=== PATIENT | male | born 1975 | race Caucasian/White ===

== ENCOUNTER 2018-02-16 14:18 | Inpatient (IN) | payer BC, OTHER ==
[~2018-02-16] VITALS: Ht 185.4 cm; Wt 95.3 kg
--- NOTE | 2018-02-16 14:30 | NUR ---
Pre-admission Note: Pt seen in intake office. Pt is pleasant and is able to answer assessment questions. Pt states he is here to detox mainly from ETOH. BP: 168/113, HR: 82, T: 98.0, RR: 18, SpO2: 95%, Pain 0/10. Unable to assess CIWA. Pt drank ETOH 1 hour prior to arriving to intake office. Pt appears flushed and seems to be mildly intoxicated. Pt reports that he has history of Hypertension. Explained policies and procedures of the unit. Pt verbalized understanding. Will admit to [facility].
[2018-02-16 14:45] VITALS: BP 168/113
--- NOTE | 2018-02-16 15:12 | NUR ---
Admission Note Pt is 42M, admitted to [facility] at 1512 for ETOH withdrawal. Pt is currently mildly intoxicated and reported drinking 1 hour prior to admission. Pt appears flushed. Pt feels anxious due to the admission process but other has no withdrawal symptoms. Pt is AOx4 and is able to answer assessment questions. Pt states that his withdrawal symptoms include anxiety and nausea. Educated pt about signs and symptoms of withdrawal. Pt verbalized understanding. Pt denies hx of withdrawal-induced seizures, denies overdosing. Pt stated he might have had blackouts when he used to drink in college years ago. Substance use history: 1. Pt drinks 750ml of Hard Liquor (either tequila or vodka, whichever is available) daily on average for the past week. Pt states he does not drink any other kind of ETOH except for 40-proof and above. Pt last drank 2-3 shots of tequila on 02/16/17 at 1300, 1 hour prior to admission. Pt first drank at 15 years old. Pt has been sober for 2 years until today. Pt reported he came from home in [place] and is being accompanied by aunt. Pt lives with his partner. Pt relapsed from being sober for 2 years but he responded "I don't know why. I have no idea why I started drinking again." Pt replied "I drank once and didn't think I was hooked until I started drinking over and over." Pt states he wants to be sober because "I know what I have to do and drinking is not good for me". Pt was unable to identify any triggers on why he started drinking. Pt reported his support system includes his aunt, sister, and boyfriend. Pt became very emotional when he was answering admission questions. Pt stated his family does not know his sexual orientation except for aunt and sister and he hinted that it might the cause of his stress which contributes to him drinking. Pt was reluctant to be admitted after expressing his emotions, however his aunt was able to support him and convince him to stay in treatment. Pt was referred by Ximena Franks but is planning to go to any available treatment facility. BP: 168/113, HR: 82, T: 98.0, RR: 18, SpO2: 95%, Pain 0/10. Unable to assess CIWA at this time. Pt drank 1 hour prior to admission. Respirations even and unlabored. Lung sounds clear. Bowel sounds active x4 quadrants. Skin intact. Pt is 6'1" and 210 lbs. Pt stated he gained weight in the past couple of months. Pt follows regular diet at home. Pt states he is an organ donor but denies having an advance directive. Pt wishes to be full code. Pt's primary physician is Dr. Fernando Julian. Pt states he does not have a psychiatrist. Pt only reports a hx of HTN. Pt states he does not fully remember the name of his blood pressure medication but thinks it could be Metoprolol. Will verify with pt's pharmacy about his own med. Pt's pharmacy is [facility] in [place]. Medication to be reconciled by MD. Pt states he does not currently smoke but chews tobacco. Smoking cessation education provided to pt. Pt verbalized understanding. Pt denies any suicidal/homicidal ideation. Bed in lowest position. Side rails up x2. Bed padded for safety. All needs attended and met. Call light functioning and within reach. Will continue to monitor.
[2018-02-16 15:43] LABS: *AMPHETAMINE, URINE NEGATIVE (NEGATIVE); *BARBITURATE, URINE NEGATIVE (NEGATIVE); *CANNABINOID, URINE NEGATIVE (NEGATIVE); *COCCAINE, URINE NEGATIVE (NEGATIVE); *OPIATE, URINE NEGATIVE (NEGATIVE); *PHENCYCLIDINE SCREEN,URINE NEGATIVE (NEGATIVE)
[2018-02-16 16:00] VITALS: BP 169/131
[2018-02-16] MEDS ORDERED: THIAMINE HCL 200 MG/2 ML VIAL IM ONE (16:00)
[2018-02-16] MEDS ORDERED: LORAZEPAM 2 MG/1 ML VIAL IM PRN (16:00)
[2018-02-16] MEDS ORDERED: MAG HYDROX/AL HYDROX/SIMETH 30 ML LIQUID UDC PO PRN (16:00)
[2018-02-16] MEDS ORDERED: ACETAMINOPHEN 325 MG TABLET PO PRN (16:00)
[2018-02-16] MEDS ORDERED: LORAZEPAM 1 MG TABLET PO PRN (16:00)
[2018-02-16] MEDS ORDERED: LOPERAMIDE HCL 2 MG CAPSULE PO PRN ×2 (16:00)
[2018-02-16] MEDS ORDERED: MIRALAX 17 GM POWD.PACK PO PRN (16:00)
[2018-02-16] MEDS ORDERED: ONDANSETRON ODT 4 MG TAB.RAPDIS SL PRN (16:00)
[2018-02-16] MEDS ORDERED: MAGNESIUM HYDROXIDE 30 ML LIQUID UDC PO PRN (16:00)
[2018-02-16] MEDS ORDERED: IBUPROFEN 600 MG TABLET PO PRN (16:00)
[2018-02-16] MEDS ORDERED: ONDANSETRON 4 MG/2 ML VIAL IM PRN (16:00)
[2018-02-16 16:39] LABS: BASOPHILS # (AUTO) 0.1 K/uL (0.0-8.0); EOSINOPHILS # (AUTO) 0.1 K/uL (0.0-0.7); EOSINOPHILS % (AUTO) 1.4 % (0.0-7.0); HEMATOCRIT 46.9 % (36.7-47.1); HEMOGLOBIN 16.4 g/dL (12.5-16.3); LYMPHOCYTES # (AUTO) 2.7 K/uL (20.0-40.0); LYMPHOCYTES % (AUTO) 26.1 % (20.5-51.5); MEAN CORPUSCULAR HEMOGLOBIN 29.5 uug (23.8-33.4); MEAN CORPUSCULAR HGB CONC 35 g/dL (32.5-36.3); MEAN CORPUSCULAR VOLUME 84.6 fL (73.0-96.2); MONOCYTES # (AUTO) 0.7 K/uL (2.0-10.0); MONOCYTES % (AUTO) 6.9 % (0.0-11.0); NEUTROPHILS # (AUTO) 6.7 K/uL (1.8-8.9); NEUTROPHILS % (AUTO) 64.6 % (38.5-71.5); PLATELET COUNT (AUTO) 213 K/uL (152-348); RED BLOOD CELL COUNT(AUTO) 5.55 MIL/uL (4.06-5.63); WHITE BLOOD COUNT (AUTO) 10.4 K/uL (3.6-10.2)
[2018-02-16 16:49] LABS: BILIRUBIN,TOTAL 0.7 mg/dL (0.2-1.0); POTASSIUM 3.7 mmol/L (3.5-5.1); TOTAL PROTEIN, SERUM 8.2 g/dL (6.4-8.2)
[2018-02-16] MEDS: MULTIVITAMINS,THERAPEUTIC TABLET PO SCH (16:52)
[2018-02-16] MEDS: FOLIC ACID 1 MG TABLET PO SCH (16:52)
[2018-02-16] MEDS: THIAMINE HCL 100 MG TABLET PO SCH (16:52)
[2018-02-16] MEDS: CLONIDINE HCL 0.1 MG TABLET PO PRN ×2 (16:52→23:06)
--- NOTE | 2018-02-16 16:52 | NUR ---
Clonidine PRN: Pt noted with BP 161/139. MD aware of pt's HTN. Okayed to give clonidine PRN. Clonidine PRN given as ordered. Will reassess.
[2018-02-16 16:59] LABS: THYROID STIMULATING HORMONE 0.875 mIU/mL (0.358-3.740)
[2018-02-16 18:00] VITALS: BP 128/80
--- NOTE | 2018-02-16 18:00 | NUR ---
Clonidine Reassessment: BP 128/80 HR 80. Clonidine effective.
--- NOTE | 2018-02-16 18:15 | NUR ---
Pharmacy clarification: Contacted pt's pharmacy: [facility] by Ximena England. Clarified that pt takes 100mg Metoprolol daily. Will put in system to be reconciled by .
--- NOTE | 2018-02-16 19:00 | NUR ---
START OF SHIFT Received 42 year old male patient admitted to [facility] on 02/16/18 for medically supervised ETOH withdrawal. Pt is sleeping at this time. Pt received PRN Clonidine on day shift. Pt not currently on a taper. Last CIWA @1600 deferred r/t intoxication. Bed is low, side rails up x 2, and call ramirez in reach. Respirations even and unlabored. Will continue to monitor.
--- NOTE | 2018-02-16 19:08 | NUR ---
End of Shift Note: Pt currently in bed with eyes closed. Pt was admitted today for ETOH withdrawal. Unable to assess last CIWA due to mild intoxication prior to admission. Pt to start Ativan taper tomorrow to manage withdrawal symptoms. Pt continues on PRN Ativan. Pt noted with increased BP. Clonidine PRN which was effective. No other complaints at this time. All needs attended and met. Will endorse to film processing shift supervisor nurse.
--- NOTE | 2018-02-16 19:35 | NUR ---
CIWA 11 Pt has increased anxiety, agitation , tremors, sweating, and restless.
[2018-02-16] MEDS: HYDROXYZINE PAMOATE 25 MG CAPSULE PO PRN (19:39)
--- NOTE | 2018-02-16 19:39 | NUR ---
PRN Vistaril/Ativan Pt awoke, increased anxiety, agitation , tremors, sweating, and restless. PRN Vistaril and Ativan 1 mg given per order. BP 159/99 HR 92 CIWA 11. Will monitor effect.
[2018-02-16 20:00] VITALS: BP 159/99
--- NOTE | 2018-02-16 20:39 | NUR ---
Reassess PRN Vistaril/Ativan Medication effective. Pt resting with eyes closed. Respirations are even and unlabored. Bed low, side rails up x 2, call ramirez in reach. Continue to monitor.
[2018-02-16] MEDS: LORAZEPAM 1 MG TABLET PO PRN (23:06)
[2018-02-16] MEDS: diphenhydrAMINE 50 MG CAPSULE PO PRN (23:06)
--- NOTE | 2018-02-16 23:09 | NUR ---
PRN Ativan/Benadryl/Clonidine/Zofran CIWA 18 Pt awake and has increased anxiety, agitation, gross tremors, diaphoretic, irritable and restless. CIWA 18 When attempting to give PRN Ativan 2 mg, Benadryl, and Clonidine @2306 pt c/o nausea. Med held and PRN Zofran given at 2309. Nausea resolved within 5 minutes and held medications given. Will monitor effect.
[2018-02-17] VITALS: BP 144/100
--- NOTE | 2018-02-17 00:09 | NUR ---
Reassess PRN Zofran/ Ativan/Benadryl/Clonidine Medication effective. Pt resting with eyes closed. Respirations are even and unlabored. Bed low, side rails up x2, call ramirez in reach. Will continue to monitor.
[2018-02-17] MEDS: LORAZEPAM 1 MG TABLET PO PRN ×2 (03:00→10:15)
[2018-02-17] MEDS: HYDROXYZINE PAMOATE 25 MG CAPSULE PO PRN ×3 (03:00→19:31)
--- NOTE | 2018-02-17 03:00 | NUR ---
PRN Ativan 2 mg/Vistaril CIWA 18 Pt awakened with increased anxiety, agitation, diaphoretic, gross tremors, sweats and chills. CIWA 18 BP 150/101 HR 80. PRN Ativan 2 mg and Vistaril given per order. Will monitor effect.
[2018-02-17 04:00] VITALS: BP 150/101
--- NOTE | 2018-02-17 04:00 | NUR ---
Reassess PRN Ativan/Vistaril Medication effective. Pt resting with eyes closed. Respirations are even and unlabored. Continue to monitor.
--- NOTE | 2018-02-17 06:42 | NUR ---
END OF SHIFT Endorsing 42 year old male patient admitted to [facility] on 02/16/18 for medically supervised ETOH withdrawal. Pt will start a 3 day Ativan taper this am 02/17/18. Last CIWA 18 @0300. Pt received PRN Vistaril x 2, Ativan 1 mg, Zofran, Ativan 2 mg x 2, Benadryl, and Clonidine on shift lab technician. Pt resting in bed with eyes closed. Respirations are even and unlabored. Bed is low, side rails up x 2, and call ramirez in reach. PO intake 1390 ml, Voided x2, BM x 0, and slept 8 hours.
[2018-02-17] MEDS ORDERED: METO-357 PO (07:36)
--- NOTE | 2018-02-17 07:50 | NUR ---
START OF SHIFT NOTE Received report from night nurse, 42 year old male admitted for ETOH withdrawal. Patient placed on 3 days Ativan taper tolerating well. Per endorsement patient received PRN Ativan x3, Vistaril, Zofran, Benadryl, Clonidine effective per night nurse, slept for 8 hours, last CIWA-12. Received patient alert awake oriented x4 presented with flat facial expressions, anhedonia, anxious, agitation, restless, fatigue, sweats, bilateral hand tremors. Patient is due for his schedule medications. Educated patient regarding plan of the day and medications regimen. Patient verbalized understanding. All safety measures in place. Will cont with plan of care.
[2018-02-17 08:00] VITALS: BP 140/98
[2018-02-17] MEDS: MULTIVITAMINS,THERAPEUTIC TABLET PO SCH (08:52)
[2018-02-17] MEDS: FOLIC ACID 1 MG TABLET PO SCH (08:52)
[2018-02-17] MEDS: LORAZEPAM 1 MG TABLET PO SCH ×3 (08:52→20:06)
[2018-02-17] MEDS: THIAMINE HCL 100 MG TABLET PO SCH (08:52)
[2018-02-17] MEDS ORDERED: 3 DAY TAPER OF LORAZEPAM -SERENITY PROTOCOL PO PRN (09:00)
[2018-02-17] MEDS ORDERED: TUBERCULIN,PURIF.PROT.DERIV. 5 TU/0.1 ML TEST ID ONE (09:00)
--- NOTE | 2018-02-17 10:15 | NUR ---
PRN ATIVAN CIWA score noted-17, Patient reported increased in anxiety, agitation, restless, fatigue, sweats, Patient noted with increased heart rate 142, and patient started" My hear is pounding". MD notified EKG ordered. Will cont to monitor.
--- NOTE | 2018-02-17 11:15 | NUR ---
ATIVAN REASSESSMENT CIWA score noted-14, patient reported Ativan was effective, anxiety, agitation, restless, decreased, heart rate lower to -112. All safety measures in placed. Will cont to monitor.
[2018-02-17 12:00] VITALS: BP 143/107
--- NOTE | 2018-02-17 12:38 | NUR ---
PRN CLONIDINE/VISTARIL Patient's blood pressure noted 143/107, and patient reported increased in anxiety, agitation, restlessness. PRN Clonidine 0.1mg PO and Vistaril 0.1mg PO administered as ordered. Will cont to monitor.
[2018-02-17] MEDS: CLONIDINE HCL 0.1 MG TABLET PO PRN ×2 (12:39→19:31)
--- NOTE | 2018-02-17 13:38 | NUR ---
CLONIDINE/VISTARIL REASSESSMENT Blood pressure noted 142/97, Patient reported feeling less anxious and agitated, restless. Medications were effective.
[2018-02-17 16:00] VITALS: BP 144/96
--- NOTE | 2018-02-17 19:08 | NUR ---
END OF SHIFT NOTE Gave report to night nurse, 42 year old male admitted for ETOH withdrawal. Patient started his Ativan taper tolerated well. During shift patient received PRN Ativan, Clonidine, Vistaril noted to be effective. Patient presented with anxiety, agitation, restless, fatigue, anhedonia, poor eye contact,Patient rested in his room most of the shift. Educate the pt regarding to learn new coping skills to prevent relapse by attending group session. Pt cooperative, friendly, no unusual mood behavior noted during this shift. Pt compliant with plan of care. Pt denies any pain or discomfort. Pt able to consumed adequate amount of his meals. Encouraged po fluids as tolerated. No episode of N/V noted during this shift. Pt denies any SI/HI. Vital signs WNL. Last CIWA score was 14 at 1600. Pt endorsed to night nurse in stable condition. All information discussed.
--- NOTE | 2018-02-17 19:20 | NUR ---
START OF SHIFT Received 42 year old male patient admitted to [facility] on 02/16/18 for medically supervised ETOH withdrawal. Pt started a 3 day Ativan taper this am 02/17/18, which he is tolerating well. Last CIWA 14 @1600. Pt received PRN Vistaril x 2, Ativan 2 mg x 2, and Clonidine on day shift. Pt in dark room, isolative and withdrawn. Pt is anxious, agitated, gross tremors, moist with c/o chills and pressure in head. BP 150/94 HR 117. Will medicate per orders. Bed is low, side rails up x 2, and call ramirez in reach. Will continue to monitor.
--- NOTE | 2018-02-17 19:31 | NUR ---
CIWA 16/ PRN Clonidine/Vistaril Pt anxious, agitated, sweating, restless, and c/o pressure in head. CIWA 16 BP 150/94 HR 117 Clonidine and Vistaril given per order. Will monitor effect.
[2018-02-17 20:00] VITALS: BP 150/94
--- NOTE | 2018-02-17 20:06 | NUR ---
Scheduled Ativan and Reassess BP Pt given scheduled dose of Ativan. Expresses mild effect of previous medications. BP 146/88 HR 98. Will continue to monitor.
--- NOTE | 2018-02-17 20:31 | NUR ---
Reassess PRN Clonidine/Vistaril Medication effective. Pt resting with eyes closed. Respirations are even and unlabored. Bed low, side rails up x 2, and call ramirez in reach. Will continue to monitor.
[2018-02-17] MEDS: diphenhydrAMINE 50 MG CAPSULE PO PRN (23:57)
--- NOTE | 2018-02-17 23:57 | NUR ---
CIWA 17/ ONE-TIME Ativan 2mg/ PRN Benadryl Pt awakened with increased anxiety, tremors, c/o pressure in his head and unable to sle CIWA 17 VS BP 160/105, HR 135, RR 16, T 98.3, O2 SAT 99% RA Received a one-time order for Ativan 2mg. Given per order with PRN Benadryl. Will monitor effect.
[2018-02-18] VITALS: BP 160/105
[2018-02-18] MEDS ORDERED: LORAZEPAM 1 MG TABLET PO ONE
--- NOTE | 2018-02-18 00:57 | NUR ---
Reassess PRN Benadryl and Ativan one-time dose Pt continues to be anxious, tremors, diaphoretic, and not sleeping. Encouraged relaxation techniques. Will continue to monitor and medicate as needed. Addendum: 02/18/18 at 0131 by DALILA LARSEN RN [id number] pt BP 140/93 HR 100
[2018-02-18] MEDS: HYDROXYZINE PAMOATE 25 MG CAPSULE PO PRN ×2 (01:18→14:53)
[2018-02-18] MEDS: CLONIDINE HCL 0.1 MG TABLET PO PRN ×3 (01:19→20:53)
--- NOTE | 2018-02-18 01:19 | NUR ---
PRN Clonidine/Vistaril Pt awake , anxious, agitated, tremors and diaphoretic . Medications given per order. Will continue to monitor.
[2018-02-18 06:54] LABS: EOSINOPHILS # (AUTO) 0.2 K/uL (0.0-0.7); LYMPHOCYTES # (AUTO) 1.8 K/uL (20.0-40.0); MONOCYTES # (AUTO) 0.5 K/uL (2.0-10.0); NEUTROPHILS # (AUTO) 2.8 K/uL (1.8-8.9)
--- NOTE | 2018-02-18 06:54 | NUR ---
END OF SHIFT Endorsing 42 year old male patient admitted to [facility] on 02/16/18 for medically supervised ETOH withdrawal. Pt currently on day 2 of a 3 day Ativan taper, which he is tolerating well. Last CIWA 17 @2345. Pt received PRN Clonidine x 2, Vistaril x 2, Benadryl, and a one-time Ativan 2 mg on nightclub manager. Initial BP 150/94 HR 117 received Clondine, reassessed BP 146/88 HR 98. At 2345 BP 160/105, HR 135, CIWA 17.Obtained one-time order for Ativan 2 mg, which was given, Reassessed after one hour BP 140/93, HR 100, pt remained anxious, agitated, diaphoretic. PRN Clonidine and Vistaril given at 0119 with positive effect. Pt resting in bed with eyes closed. Respirations are even and unlabored. Bed is low, side rails up x 2, and call ramirez in reach.
[2018-02-18 07:16] LABS: BILIRUBIN,DIRECT 0.3 mg/dL (0.0-0.2); BILIRUBIN,TOTAL 1.5 mg/dL (0.2-1.0); CREATININE 1.1 mg/dL (0.6-1.3); POTASSIUM 3.6 mmol/L (3.5-5.1); TOTAL PROTEIN, SERUM 6.8 g/dL (6.4-8.2)
--- NOTE | 2018-02-18 07:26 | NUR ---
START OF SHIFT NOTE Received report from night nurse, 42 year old male admitted for ETOH withdrawal. Patient continues with 3 days Ativan taper tolerating well. Per endorsement patient received PRN Ativan x1 dose, Vistaril x2,Clonidine x2 Benadryl, effective per night nurse, slept for 6 hours, last WA-. Received patient alert awake oriented x4 anxious, agitated, restless, fatigue, sweats, bilateral hand tremors, anhedonia. Patient is due for his schedule medications. Educated patient regarding plan of the day and medications regimen. Patient verbalized understanding. All safety measures in place. Will cont with plan of care.
[2018-02-18 07:37] LABS: BASOPHILS # (AUTO) 0.1 K/uL (0.0-8.0); BASOPHILS % (AUTO) 1.1 % (0.0-2.0); EOSINOPHILS % (AUTO) 3.6 % (0.0-7.0); HEMOGLOBIN 14.1 g/dL (12.5-16.3); LYMPHOCYTES % (AUTO) 33.8 % (20.5-51.5); MEAN CORPUSCULAR HEMOGLOBIN 29.6 uug (23.8-33.4); MEAN CORPUSCULAR HGB CONC 34 g/dL (32.5-36.3); MEAN CORPUSCULAR VOLUME 87.2 fL (73.0-96.2); MONOCYTES % (AUTO) 9.2 % (0.0-11.0); NEUTROPHILS % (AUTO) 52.3 % (38.5-71.5); RED BLOOD CELL COUNT(AUTO) 4.75 MIL/uL (4.06-5.63)
[2018-02-18 07:39] LABS: HEMATOCRIT 41.4 % (36.7-47.1); PLATELET COUNT (AUTO) 126 K/uL (152-348); WHITE BLOOD COUNT (AUTO) 5.3 K/uL (3.6-10.2)
[2018-02-18 08:00] VITALS: BP 143/99
[2018-02-18] MEDS: MULTIVITAMINS,THERAPEUTIC TABLET PO SCH (08:38)
[2018-02-18] MEDS: FOLIC ACID 1 MG TABLET PO SCH (08:38)
[2018-02-18] MEDS: THIAMINE HCL 100 MG TABLET PO SCH (08:38)
[2018-02-18] MEDS: LORAZEPAM 1 MG TABLET PO SCH ×2 (08:38→20:53)
[2018-02-18] MEDS: METOPROLOL SUCCINATE XL 50 MG TAB.SR.24H PO SCH (08:39)
[2018-02-18 12:00] VITALS: BP 144/95
[2018-02-18 14:08] LABS: HEPATITIS B SURFACE AG Negative (Negative)
--- NOTE | 2018-02-18 14:52 | NUR ---
PRN Vistaril/Clonidine PRN Vistaril and Clonidine administered for patient report of increasing anxiety and agitation. Will continue to monitor.
--- NOTE | 2018-02-18 15:52 | NUR ---
VISTARIL/CLONIDINE REASSESSMENT Patient reported medications were effective anxiety and agitation subsided.
[2018-02-18 16:00] VITALS: BP 141/90
--- NOTE | 2018-02-18 19:22 | NUR ---
END OF SHIFT NOTE Gave report to night nurse, 42 year old male admitted for ETOH withdrawal and patient continues with Ativan taper tolerating well. Patient presented with anxiety, agitation, restlessness, fatigue, anhedonia, bilateral hand tremors, odorous, poor oral hygiene. Patient received his scheduled medications along with PRN Vistaril/Clonidine noted to be effective. Skin intact warm and dry to touch. Vital signs WNL. Encourage patient to attend groups activities to learn new coping skills. Patient encouraged to socialize with others. Patient denies any SI/HI. Last CIWA score was 11 at 1600. Encourage PO fluids as tolerated. All needs are attended. Endorse patient to night nurse in stable condition.
--- NOTE | 2018-02-18 19:44 | NUR ---
START OF SHIFT NOTE Rcvd report from outgoing nurse. Pt is a 42 y/o male A/O to person, place, time, and purpose. Pt was admitted for medically supervised withdrawal from ETOH. Pt is on day 2 of a 3 day Ativan taper. Pt has been presenting w/ sweats, flushing, chills, restlessness, lethargy, drowsiness, anxiety, and a flat affect. Pt rcvd PRN Clonidine and Vistaril and were both noted effective by outgoing nurse. Last CIWA 11 @ 1600. Call light is within reach. Pt will continue to be monitored and needs met.
[2018-02-18 20:00] VITALS: BP 132/92
[2018-02-18] MEDS: diphenhydrAMINE 50 MG CAPSULE PO PRN (20:53)
--- NOTE | 2018-02-18 20:53 | NUR ---
PRN BENADRYL AND CLONIDINE ADMINISTRATION Benadryl 50 mg for sleep and Clonidine 0.1mg for anxiety were given. Will reassess pt in 1 hr.
--- NOTE | 2018-02-18 21:53 | NUR ---
PRN BENADRYL AND CLONIDINE REASSESSMENT Pt is in bed w/ his eyes closed. Pt's respirations are unlabored and even.
[2018-02-19] VITALS: BP 129/90
[2018-02-19 04:00] VITALS: BP 131/89
[2018-02-19] MEDS: HYDROXYZINE PAMOATE 25 MG CAPSULE PO PRN (04:11)
[2018-02-19] MEDS: CLONIDINE HCL 0.1 MG TABLET PO PRN ×2 (04:12→20:45)
--- NOTE | 2018-02-19 04:12 | NUR ---
PRN CLONIDINE, VISTARIL, AND MOTRIN ADMINISTRATION Clonidine 0.1mg and Vistaril 50mg for anxiety and sweats and Motrin 600mg for body aches/pain. Will reassess pt in 1 hr.
--- NOTE | 2018-02-19 05:12 | NUR ---
PRN CLONIDINE, VISTARIL, AND MOTRIN REASSESSMENT Pt is in bed w/ his eyes closed. Pt's respirations are unlabored and even.
--- NOTE | 2018-02-19 07:09 | NUR ---
END OF SHIFT NOTE Endorsed pt to oncoming nurse. Pt is a 42 y/o male A/O to person, place, time, and purpose. Pt was admitted for medically supervised withdrawal from ETOH. Pt completed day 2 of a 3 day Ativan taper. Pt continued presenting w/ sweats, flushing, chills, restlessness, lethargy, drowsiness, insomnia, anxiety, and a flat affect. Pt stated he was unable to fall asleep. I just toss and turn all night. Pt denies any S/I or H/I.PRN Clonidine x2, Benadryl, Vistaril, and Motrin were given and noted ineffective. Pts fluid intake was 500ml and he slept for 1 hr. Last CIWA 10 @ 0400. Call light is within reach.
--- NOTE | 2018-02-19 07:59 | NUR ---
START OF SHIFT NOTE Received report from night nurse, 42 year old male admitted for ETOH withdrawal. Patient continues with 3 days Ativan taper tolerating well. Per endorsement patient received PRN Vistaril, Clonidine x2, Benadryl,Motrin effective per night nurse, slept for 1 hours, last CIWA-10. Received patient alert awake oriented x4 anxious, agitated, restless, fatigue, sweats, bilateral hand tremors, anhedonia. Educated patient regarding plan of the day and medications regimen. Patient verbalized understanding. All safety measures in place. Will cont with plan of care.
[2018-02-19 08:00] VITALS: BP 135/93
[2018-02-19] MEDS: THIAMINE HCL 100 MG TABLET PO SCH (08:27)
[2018-02-19] MEDS: FOLIC ACID 1 MG TABLET PO SCH (08:27)
[2018-02-19] MEDS: MULTIVITAMINS,THERAPEUTIC TABLET PO SCH (08:27)
[2018-02-19] MEDS: METOPROLOL SUCCINATE XL 50 MG TAB.SR.24H PO SCH (08:29)
[2018-02-19] MEDS ORDERED: LORAZEPAM 1 MG TABLET PO SCH (09:00)
--- NOTE | 2018-02-19 09:11 | NUR ---
Therapist prompted client to attend all daily group therapy sessions.
[2018-02-19 12:00] VITALS: BP 144/97
[2018-02-19] MEDS ORDERED: HYDR-3895 PO (15:23)
[2018-02-19] MEDS ORDERED: METO-357 PO (15:23)
[2018-02-19] MEDS ORDERED: DIPH50CA37 PO (15:23)
[2018-02-19] MEDS ORDERED: IBUP-1955 PO (15:23)
[2018-02-19 16:00] VITALS: BP 140/93
--- NOTE | 2018-02-19 19:35 | NUR ---
END OF SHIFT NOTE Gave report to night nurse, 42 year old male admitted for ETOH withdrawal. Patient completed his Ativan taper tolerated well. Patient presented with anxiety, agitation, restless, fatigue, anhedonia. Patient received his scheduled medications no PRN'S were administered. Patient scheduled to be discharge in AM. Educate the pt regarding to learn new coping skills to prevent relapse by attending group session. Pt cooperative, friendly, no unusual mood behavior noted during this shift. Pt compliant with plan of care. Pt able to consumed adequate amount of his meals. Encouraged Po fluids as tolerated. Pt denies any SI/HI. Vital signs WNL. Last CIWA score was 9 at 1600. All safety measures in place.Pt endorsed to night nurse in stable condition.
--- NOTE | 2018-02-19 19:40 | NUR ---
Start of shift note Patient is a 42 year old male admitted on 02/16/18 for medically supervised ETOH withdrawal. Patient completed a 3 day Ativan taper. Pt is on fall and seizure precautions. Per endorsement pt had no PRN medications during this shift. Pt is being discharged tomorrow 02/20/18. Upon rounds pt was noted in bed resting, AOx4. Explained plan of care and he verbalized understanding. Pt has been compliant and attends treatment group. Pt continues to present with anxiety, insomnia, sweats, agitation and tremors. Pt is breathing even and unlabored. Safety measures in place, bed locked in low position, side rails up x2, and call light within reach. Will continue to monitor.
[2018-02-19 20:00] VITALS: BP 144/98
[2018-02-19] MEDS: diphenhydrAMINE 50 MG CAPSULE PO PRN (20:45)
--- NOTE | 2018-02-19 20:45 | NUR ---
PRN Clonidine and Benadryl Pt is presenting with anxiety, agitation and difficulty falling asleep. Administered PRN Clonidine and Benadryl and pt tolerated well and will continue to monitor. Pt is breathing even and unlabored. Safety measures in place and call light within reach.
--- NOTE | 2018-02-19 21:45 | NUR ---
PRN Clonidine and Benadryl Reassessment Pt is in bed resting in bed watching tv, he reports decreased anxiety and he will soon go to sleep. Pt is breathing even and unlabored with no s/s of distress. Medication noted to be effective. Safety measures in place and will continue to monitor.
[2018-02-20 01:56] VITALS: BP 132/92
[2018-02-20] MEDS: HYDROXYZINE PAMOATE 25 MG CAPSULE PO PRN ×2 (01:57→08:10)
--- NOTE | 2018-02-20 01:57 | NUR ---
PRN Vistaril Pt reports increased anxiety and agitation. Administered PRN Vistaril and pt tolerated well. Safety measures in place and will continue to monitor.
--- NOTE | 2018-02-20 02:57 | NUR ---
PRN Vistaril Reassessment Pt is resting in bed resting testing with eyes closed, breathing even and unlabored. Medication noted to be effective. Will continue and safety measures in place.
--- NOTE | 2018-02-20 07:27 | NUR ---
End of shift note Patient is a 42 year old male admitted on 02/16/18 for medically supervised ETOH withdrawal. Patient completed a 3 day Ativan taper. Pt is on fall and seizure precautions. Pt is being discharged today 02/20/18. Pt's last CIWA was 11. Pt had PRN Clonidine, Benadryl and Vistaril during this shift. Pt continues to present with anxiety, sweats, tremors, and agitation. Pt was cooperative with plan of care. Pt slept for 5 hours and had a total intake of 1,000 ml. Pt voided x3 and had no bowel movements during this shift. Safety measures in place, bed locked in low position, side rails up x2, and call light within reach. Will endorse to day shift.
--- NOTE | 2018-02-20 07:30 | NUR ---
start of shift note: received pt from warehouse supervisor 3rd shift nurse, pt is in stable condition at this time, pt is extremely anxious about discharging today. pt [facility]H withdrawal/dependence. pt's last documented ciwa was 11. will assit pt in discharging and will continue to meet pt's needs
[2018-02-20] MEDS: THIAMINE HCL 100 MG TABLET PO SCH (08:09)
[2018-02-20] MEDS: FOLIC ACID 1 MG TABLET PO SCH (08:09)
[2018-02-20] MEDS: METOPROLOL SUCCINATE XL 50 MG TAB.SR.24H PO SCH (08:10)
[2018-02-20] MEDS: MULTIVITAMINS,THERAPEUTIC TABLET PO SCH (08:10)
[2018-02-20 08:23] VITALS: BP 144/104
--- NOTE | 2018-02-20 09:35 | NUR ---
discharge note:"pt was noted with increased B/p of 144/104 during morning v/s, administered metoprolol early to assist with increased b/p. after administration and re-assessing b/p decreased to 138/89. pt also received vistaril for anxiety. pt teaching administered and all personal belongings were returned. pt will be transported to [facility] via private car
== END 2018-02-20 09:35 | disposition other institution (70) | DRG 895 ==
LOC: SRC 14:18
PROVIDERS: ADMIT Family Medicine Addiction Medicine; ATTEND Family Medicine Addiction Medicine
PROC: HZ2ZZZZ Detoxification Services for Substance Abuse Treatment (ICD-10-PCS; principal; 2018-02-16)
PROC: HZ41ZZZ Group Counseling for Substance Abuse Treatment, Behavioral (ICD-10-PCS; 2018-02-18)
PROC: HZ31ZZZ Individual Counseling for Substance Abuse Treatment, Behavioral (ICD-10-PCS; 2018-02-19)
DX: F10.230 Alcohol dependence with withdrawal, uncomplicated (principal); Y90.8 Blood alcohol level of 240 mg/100 ml or more; F41.1 Generalized anxiety disorder; F17.220 Nicotine dependence, chewing tobacco, uncomplicated; I10 Essential (primary) hypertension; D72.829 Elevated white blood cell count, unspecified; R74.0 Nonspecific elevation of levels of transaminase and lactic acid dehydrogenase [LDH]; R73.9 Hyperglycemia, unspecified; R00.0 Tachycardia, unspecified
CPT/HCPCS: 36415; 70030-TC; 80307; 83690; 83735; 84443; 85025; 86580; 86592; 86705; 86803; 87340; 87806; A4663; G0480; J3411; Q0162; Q0163